=== PATIENT | male | born 1950 | race Caucasian/White ===

== ENCOUNTER → 2016-11-08 | Outpatient (CLI) | payer OTHER, MEDICARE ==
[~2016-11-08] MED LIST: ASPCH81X PO; ASPI81TA28 PO; ATOR-24 PO; BROM0.07 OPL; CLOP1TAB5 PO; LPT/40 PO; LSN20 PO; METO100T14 PO; OFLO0.3S OPL; OPTIRAY 320 IV PRN; PRED1SUS3 OPL; SYMIN160 INH; Symbicort Inhaler INH
--- NOTE | 2016-11-08 13:00 | DIAGNOSTIC IMAGING REPORT ---
CT ANGIOGRAPHY OF THE ABDOMINAL AORTA AND BILATERAL RUNOFF CT DOSE: 3788.96 mGy.cm CLINICAL HISTORY: Claudication. Atherosclerotic disease. TECHNIQUE: The patient was scanned on an emergent basis. Unenhanced images were obtained from the dome of the diaphragm through the lower legs without intravenous contrast. The examination was then repeated in a dynamic helical fashion during intravenous administration of 112 cc of Optiray 320. MIP imaging was performed. COMPARISON STUDY: None. FINDINGS: The visualized portions lung bases reveal lower lobe bronchial wall thickening and mucous plugging on the right. There are right lower lobe atelectatic changes. No hepatic or splenic masses are visualized in this arterial phase study. No gallbladder abnormalities are visualized. No pancreatic masses are visualized. No adrenal masses are visualized. There is a 5 mm lower pole right renal calculus. No renal masses are visualized. There is no evidence of pathologic adenopathy. There is no pathologic bowel dilatation. There is a small hiatal hernia. There is no evidence of hemodynamically significant celiac or superior mesenteric artery stenosis. There are 2 left renal arteries, and 3 right renal arteries. There is no evidence of hemodynamic significant renal artery stenosis. There is an infrarenal abdominal aortic aneurysm measuring 3.7 cm transversely and 3 cm in AP diameter. The aneurysm extends over a length of 5.6 cm. There is mural thrombus with a patent aortic lumen measuring approximately 2 cm. There are mild to moderate atheromatous changes present within both common iliac arteries. There is a 50% stenosis of the right common iliac artery. There is no evidence of a significant stenosis of the left. There are diffuse atheromatous changes present within both external iliac arteries. There is a 75% stenosis of the proximal left external iliac artery. There are multiple right external iliac artery stenoses, the most severe which measures 80%. There are mild multifocal common femoral artery stenoses. On the right, there are diffuse atheromatous changes present within the superficial femoral artery with multiple stenoses measuring up to 50%. There is an 8% right popliteal artery stenosis. There is a stenosis of the right proximal anterior tibial artery. The anterior tibial artery can be visualized to just above the level the ankle. The posterior tibial and peroneal arteries can be visualized to just above the level the ankle. On the left, there are diffuse atheromatous changes present within the superficial femoral artery. There is occlusion of the distal left superficial femoral artery. The proximal popliteal artery is occluded. There is reconstitution of the mid popliteal artery which contains multifocal stenoses. There are high-grade stenoses involving the proximal peroneal and posterior tibial arteries. The peroneal artery can be visualized to just above the level the ankle. The posterior tibial artery can be visualized to the level the ankle. The anterior tibial artery can be visualized to just above the level of the ankle. There is a proximal anterior tibial artery stenosis. IMPRESSION: 1. Extensive atherosclerotic disease is involving both lower extremities. There is a 50% stenosis involving the right common Artery, and 80% stenosis involving the right external iliac artery. There is a 75% stenosis of the left external iliac artery. There are mild multifocal common femoral artery stenoses. There are diffuse atheromatous changes within the superficial femoral artery with a 50% stenosis on the right, and 80% right popliteal artery stenosis. On the left, there is occlusion of the distal superficial femoral artery and proximal popliteal artery. There is mid popliteal artery reconstitution with multifocal stenoses.There are diffuse atheromatous changes within the runoff vessels bilaterally 2. 3.7 cm abdominal aortic aneurysm Electronically signed by: Nicola Celeste M.D. 11/08/2016 12:59 PM Dictated Date/Time: 11/08/2016 12:39 PM
== END | disposition home or self-care (01) ==
LOC: C.CTS 11:59
PROVIDERS: ATTEND Surgery Vascular Surgery
DX: I70.213 Atherosclerosis of native arteries of extremities with intermittent claudication, bilateral legs (principal); I71.4 Abdominal aortic aneurysm, without rupture

== ENCOUNTER → 2016-11-11 | Day surgery (SDC) | payer OTHER, MEDICARE ==
[~2016-11-11] VITALS: Ht 177.8 cm; Wt 100.0 kg
[2016-11-11] VITALS (7 sets, daily range): BP systolic 124–146; BP diastolic 69–80; PULSE 63–99; TEMP 36.3–36.8; O2SAT 94–98; Ht 177.8 cm; Wt 100.0 kg
[~2016-11-11] MED LIST changes: +CLINDAMYCIN 600 MG/54 ML D5W IV SCH; +FENTANYL CITRATE INJ 50 MCG/1 ML 2 ML VIAL IV ONE; +FENTANYL CITRATE INJ 50 MCG/1 ML 2 ML VIAL ONE; +HEPARIN SOD (PORCINE) 1000 UNIT/ML 10 ML VIAL ONE; +IODIXANOL (VISIPAQUE) 270 MG/ML 150ML XX ONE; +LIDOCAINE HCL 1% 20 ML VIAL INFIL ONE; +MIDAZOLAM HCL 1 MG/ML 2ML VIAL IV ONE; +MIDAZOLAM HCL 1 MG/ML 2ML VIAL ONE; -OPTIRAY 320 IV PRN; +OXYCODONE/ACETAMINOPHEN 5-325 TAB PO PRN; +SODIUM CHLORIDE 0.9% 1000ML 1,000 ML IV SCH
--- NOTE | 2016-11-11 06:04 | History and Physical ---
History & Physical CC: Severe claudication right leg HPI: Mr. Briseno states that for about a year and a half, he has had difficulty ambulating due to a burning sensation which develops in his right hip after walking a short distance. He states that it has worsened significantly over the past few months. He also states to having discomfort in his left calf which has developed within the last year and has worsened in the last 1-2 months as well. He states that he did have an evaluation for possible spinal problems and he was informed that he does have spinal stenosis. He says that he did have an injection in his spine; however, this did not alleviate any discomfort and he continues with the thigh claudication. He states that he was scheduled to have another injection, although he has put that off in light of his ultrasound findings recently. He admits bilateral great toe wounds. He is not sure when they started. They have been present only for a few weeks, but that they are healing slowly. He states to having skin which is peeling from his left foot and swelling of that left foot as well as numbness. He denies other complaints at this time including headaches, fevers, chills, dizziness, chest pain, shortness of breath, abdominal pain, nausea, vomiting, diarrhea, constipation, dysuria, hematuria or rest pain. ALLERGIES INCLUDE KEFLEX AND NIACIN. Her home medications are reconciled in the chart and include the following: Aspirin, atorvastatin, fenofibrate, lisinopril, metoprolol tartrate, Symbicort and tramadol. IMAGING: The patient did have an aortoiliac ultrasound at [facility], which demonstrated a severe stenosis of his right external iliac artery, a significant stenosis of his right common iliac and a significant stenosis of his left external iliac artery as well. A lower extremity ultrasound demonstrated significant disease with bilateral SFA occlusions and a left DIANA of 0.3 and a right of 0.5. PAST MEDICAL HISTORY: Positive for MS, coronary artery disease, spinal stenosis , hyperlipidemia, hypertension. History is positive for appendectomy, hernia repair x2, bowel surgery x2 and an abdominal hernia repair x1 in 2007. FAMILY HISTORY: Positive for heart disease, hypertension, diabetes and cancer. SOCIAL HISTORY: Positive for tobacco use. The patient states that he quit smoking a pack a day 2 months ago. He states that he does imbibe alcohol on a nearly daily basis, typically with 1-2 glasses of wine with dinner and occasional light beer on the weekend. REVIEW OF SYSTEMS: Negative for fatigue, fevers, sweats or weight loss. He does admit to exercise intolerance and states that he will typically only ambulate around his house doing small activities walking as it is causing too much discomfort for him to ambulate any significant distance. He states that he has to stop at about 100 feet. PHYSICAL EXAMINATION: His vital signs are as follows: Blood pressure of 112/60 , heart rate 60, respiratory rate of 16 and oxygen 96% on room air. The patient is 177 cm tall and weighs 99.8 kilograms. Constitutional: In general, patient is a mildly ill-appearing elderly male in no acute distress. He ambulates without assistance and is active, alert and oriented x4 with normal recent and remote memory. Head is normocephalic, atraumatic. Eyes are EOMI. Her ENMT exam demonstrates no hearing loss, rhinorrhea or pharyngeal erythema. Neck is supple, nontender, with midline trachea without crepitus. Lungs are clear bilaterally, but decreased throughout. Cardiovascular exam demonstrates a nondisplaced apical impulse with a regular rate and rhythm without murmurs, gallops, or rubs. Peripheral pulses are full and equal in all extremities unless otherwise noted, specifically in his carotid, brachial and radial. His right femoral pulse is nonpalpable, his left is +1, his bilateral lower extremities distal pulses are nonpalpable. He has brisk capillary refill to his toes with no sign of distal ischemia noted. The patient demonstrates no bruit in his carotid, abdominal or femoral area. Abdomen is soft, nontender with normoactive bowel sounds in all 4 quadrants without guarding or rebound and I was unable to appreciate any pulsatile masses due to body habitus. Musculoskeletal exam demonstrates normal tone and strength for age. Bilateral upper extremities demonstrate no cyanosis, edema, clubbing, varicosities or ulcers. The patient's left lower extremity does demonstrate +1 edema at the ankle and foot. This foot is somewhat erythematous with exudative dermatitis noted primarily to the forefoot. He does have a few cracks in his heel into the calluses of the forefoot. There is a very shallow ulceration to his left toe tip which appears to have good granulation. His right foot has a similar wound to the tip of his great toe which is healing as well, but that foot does not demonstrate any dermatitis or erythema. Neurologically, patient has grossly intact cranial nerves and grossly intact sensation. ASSESSMENT: Severe peripheral arterial disease and aortoiliac disease with significant claudication. PLAN: Patient admitted for arteriography and possible intervention. I have discussed the risks options and benefits of the procedure with the patient. The patient understands the risks options and benefits and agrees to the procedure.
[2016-11-11 07:25] LABS: CREATININE 0.97 mg/dl (0.60-1.40)
--- NOTE | 2016-11-11 08:48 | Procedure Note ---
Pre-Mod Sedation Assessment General Date of Moderate Sedation: Nov 11, 2016. Vital Signs: Vital Signs Past 12 Hours Date Time Temp Pulse Resp B/P Pulse Ox O2 Delivery O2 Flow Rate FiO2 11/11/16 06:15 36.3 99 16 140/80 94 Room Air Pre-Sedation Airway Assessment Oral Cavity: WNL Smoking Status: Former Smoker Mallampati Classification: Class I ASA Classification: Class II Notes The planned sedation has been discussed with the patient and consent obtained. I have identified the patient, determined the appropriateness of sedation and have assessed the patient immediately prior to the procedure. All medicine(s) and interventions are by my order.
--- NOTE | 2016-11-11 08:48 | History & Physical Bridge Note ---
H&P Re-Evaluation Bridge Note: I have examined the patient, reviewed the History & Physical and in the interval since the performance of the History & Physical I have noted the following changes of clinical significance: No changes noted
--- NOTE | 2016-11-11 10:03 | Procedure Note ---
Post-Moderate Sedation Plan General Date of Moderate Sedation Nov 11, 2016. Vital Signs: Vital Signs Past 12 Hours Date Time Temp Pulse Resp B/P Pulse Ox O2 Delivery O2 Flow Rate FiO2 11/11/16 06:15 36.3 99 16 140/80 94 Room Air Review - Discharge Plan Post Moderate Sedation Plan: On clinical assessment, the patient appears to have tolerated the conscious sedation without complications. Patient is recovering as anticipated. Patient will continue to be monitored by nursing and may be discharged when conscious sedation discharge criteria are met.
--- NOTE | 2016-11-11 10:04 | [facility] Post Operative Brief Note ---
Immediate Operative Summary Operative Date Nov 11, 2016. Pre-Operative Diagnosis Severe peripheral arterial disease and aortoiliac disease with significant claudication. Post-Operative Diagnosis Same Procedure(s) Performed Arteriogram Percutaneous Transluminal Angioplaty/Stent Right External Iliac Artery Stent Moderate Conscious Sedation ([id number]) Surgeon Pablo Aircraft Mechanic Surgeon(s) None Estimated Blood Loss 5 Findings 90% stenosis of right ext iliac artery with 10% residual Specimens None Anesthesia Local with moderate conscious sedation Complication(s) None Disposition
--- NOTE | 2016-11-11 10:20 | DIAGNOSTIC IMAGING REPORT ---
DATE OF PROCEDURE: 11/11/2016 PREOPERATIVE DIAGNOSIS: Right external iliac artery stenosis. POSTOPERATIVE DIAGNOSIS: Same. PROCEDURE: 1. Stent of right external iliac artery using a 9 x 3 Absolute. 2. Moderate conscious sedation, 27 minutes. SURGEON: Dr. Shah. ANESTHETIC: Local with moderate conscious sedation. PROCEDURE INDICATIONS: The patient is a 65-year-old gentleman with bilateral leg claudication, much worse on the right than the left. He complains of fair amount of thigh claudication which is limiting his daily activity. He was found to have severe stenosis of the right external iliac artery on CTA. Stenting of this lesion was recommended. He understood the risks, options and benefits, and agreed to have this procedure. The patient was taken to the angiogram suite and placed in supine position. After groins were prepped and draped in a sterile manner, local anesthetic was administered. A percutaneous puncture was then made of the right common femoral artery. A 5-Hungarian sheath was inserted. A catheter was passed up into the infrarenal aorta over a 0.035 wire. Pigtail was situated above the renals at the end prior to the injection. Aortogram was performed which showed moderate irregularity of the abdominal aorta. There was irregularity seen in the left iliac system. The right iliac system had mild irregularity until the distal external iliac artery at which point there appeared to be a 90% lesion. The catheter was removed. The C-arm was obliqued and another run of hand injection was done. This confirmed a 90% narrowing of the distal right external iliac artery. It was decided to place a 9 x 3 Absolute stent. This was placed over the wire. It was deployed without difficulty. A 9 x 4 balloon was then used to expand the stent. There was a 10% residual at the end of this ballooning. At that point, the wire and catheter were removed. The wire was reinserted and the Star closure device was then inserted to its sheath; however, I did not like the positioning of the StarClose, therefore, it was not deployed. Pressure was applied to the puncture site. Adequate hemostasis was obtained. Sterile pressure dressing was applied and the patient left the angio suite in good condition and tolerated the procedure well.
--- NOTE | 2016-11-11 13:38 | Discharge Instructions ---
Discharge Instructions Visit Reason for Visit: Aortoiliac Occlusive Disease with Claudication Discharge Discharge Diagnosis / Problem: Right iliac artery stenosis Discharge Goals Goal(s): Therapeutic intervention Activity Recommendations Activity Limitations: per Instructions/Follow-up section Anesthesia . Post Anesthesia Instructions: If you have had General Anesthesia or IV Sedation: * Do not drive today. * Resume driving when surgeon permits. * Do not make important decisions or sign legal documents today. * Call surgeon for: 1. Temperature elevations greater than 101 degrees F. 2. Uncontrollable pain. 3. Excessive bleeding. 4. Persistent nausea and vomiting. 5. Medication intolerance (nausea, vomiting or rash). * For nausea and vomiting use only clear liquids such as: tea, soda, bouillon until nausea subsides, then gradually increase diet as tolerated. * If you have any concerns or questions, call your surgeon's office. If physician is unavailable and it is an emergency, call 911 or go to the nearest emergency room. . Instructions / Follow-Up Instructions / Follow-Up Call [phone] to schedule a follow up appointment if one not already scheduled. SPECIAL CARE INSTRUCTIONS: Medications: * Continue to take your medications as directed. If you have been given a prescription for Plavix, please fill it immediately and take as directed. Incision Care: * Your puncture site may have some bruising and minor swelling for about one week. * You will have a small dressing covering your puncture site. You may remove the dressing after 24 hours and shower. You may let the warm soapy water run over it, but be sure to dry the puncture site well and keep it dry. * DO NOT IMMERSE THE INCISION IN A TUB/POOL/etc. UNTIL HEALED. * Puncture sites should be kept covered with a band-aid until it begins to heal. Restrictions: * Depending on whether you leg or arm was punctured to access the arteries, you will be required to lay flat, hold your arm still, or both, for about 4 hours after the procedure to prevent bleeding. * Limit your activity for the first 48 hours. You may walk and go up and down steps. Avoid excessive bending or movement at the puncture site. Possible Complications: * Excessive Swelling - after blood flow is improved you may notice increased swelling in the lower legs. This is a normal response. This usually depends on the amount of blockages in the leg, how long they have been there prior to your procedure and how much blood flow was restored. Elevating your legs will help to improve this. Please notify our office ([phone] ) if the swelling does not go away after lying in bed overnight. * Infection/Drainage/Bleeding - Drainage or bleeding from the puncture site should be minimal. If you have excessive bleeding or drainage, call our office ([phone]) right away. * Pain - You may experience some mild pain or soreness at your puncture site. If your pain does not improve, please contact our office ([phone]). Call your doctor and seek emergent treatment if you develop: * Temperature above 101 degrees * Any fever or chills * Any redness or purulent drainage from the puncture site * Any new dusky/blue colored toes or feet with coolness or sharp or aching pain. SKIN IRRITATION: * You may experience some redness and/or swelling in the area where radiation was administered. If any skin irritation occurs, please contact your family physician. FOLLOW UP VISIT: Keep any scheduled doctor appointments. Diet Recommendations Recommended Home Diet: resume previous diet Procedures Procedures Performed: Arteriogram Percutaneous Transluminal Angioplaty/Stent Right External Iliac Artery Stent Moderate Conscious Sedation ([id number]) Pending Studies Studies pending at discharge: no Medical Emergencies . Who to Call and When: Medical Emergencies: If at any time you feel your situation is an emergency, please call 911 immediately. . Non-Emergent Contact Non-Emergency issues call your: Surgeon . . "Provider Documentation" section prepared by Colby Shah.
--- NOTE | 2016-12-02 09:24 | EDITING REQUIRED CODING QUERY ---
SUPPORTING DIAGNOSIS NEEDED A supporting diagnosis is required for the test/procedure performed on this patient in order for us to be reimbursed by the patient's insurance. Please provide a supporting diagnosis for the following test/procedure listed below next to the test name along with your signature. *If there is no additional diagnosis for this patient that would support the following test/procedure please document that below next to the test/procedure. Test(s)/Procedure(s) that require a supporting diagnosis: * ([id number]) NON-CORONARY VASCULAR STENT - ILIAC REVASCULAR WITH STENT * DIAGNOSIS: Provider Signature: Date: Thank you Zuleika Da Silva Health Information Management Once completed, please kindly fax back to [phone] For questions please call [phone]
== END | disposition home or self-care (01) ==
LOC: C.ACU 05:44
PROVIDERS: ATTEND Surgery Vascular Surgery
DX: I70.211 Atherosclerosis of native arteries of extremities with intermittent claudication, right leg (principal); L97.529 Non-pressure chronic ulcer of other part of left foot with unspecified severity; L97.519 Non-pressure chronic ulcer of other part of right foot with unspecified severity; I74.3 Embolism and thrombosis of arteries of the lower extremities; I25.10 Atherosclerotic heart disease of native coronary artery without angina pectoris; E78.5 Hyperlipidemia, unspecified; I10 Essential (primary) hypertension; Z82.49 Family history of ischemic heart disease and other diseases of the circulatory system; Z83.3 Family history of diabetes mellitus; Z87.891 Personal history of nicotine dependence; Z79.899 Other long term (current) drug therapy; Z79.82 Long term (current) use of aspirin; I25.2 Old myocardial infarction

== ENCOUNTER → 2016-12-21 | Day surgery (SDC) | payer OTHER, MEDICARE ==
[2016-12-20 11:28] VITALS: Ht 177.8 cm; Wt 97.7 kg
[~2016-12-21] VITALS: Ht 177.8 cm; Wt 97.7 kg
[~2016-12-21] MED LIST changes: +500ML BSS 0.3ML EPI 1:1000PF IRRIG ONE; +ACETAMINOPHEN 325 MG TAB PO PRN; +AMVISC PLUS 0.8ML SYRINGE INT OCU ONE; -ASPI81TA28 PO; +ATROPINE SULFATE 0.1 MG/ML 5ML SYR IV PRN; +BSS FLUSH ONE; -CLINDAMYCIN 600 MG/54 ML D5W IV SCH; +ENDOCOAT 0.85ML SYRINGE INT OCU ONE; +EpHEDrine SULFATE INJ 50 MG/ML AMP IV PRN; +EpINEphrine INJ 1MG/ML AMP 1 MG/ML AMP ONE; -FENTANYL CITRATE INJ 50 MCG/1 ML 2 ML VIAL IV ONE; -FENTANYL CITRATE INJ 50 MCG/1 ML 2 ML VIAL ONE; -HEPARIN SOD (PORCINE) 1000 UNIT/ML 10 ML VIAL ONE; -IODIXANOL (VISIPAQUE) 270 MG/ML 150ML XX ONE; +LACTATED RINGER'S 1000ML 500 ML IV SCH; +LIDOCAINE 4% OP SOLN DROP CHARGE ONE; +LIDOCAINE 4% OP SOLN DROP CHARGE OPL SCH; -LIDOCAINE HCL 1% 20 ML VIAL INFIL ONE; +LIDOCAINE HCL 1% MPF 2 ML VIAL ONE; -LPT/40 PO; -LSN20 PO; -MIDAZOLAM HCL 1 MG/ML 2ML VIAL IV ONE; +MIX: 4ML BSS 1ML EPI 1:1000 PF TOP ONE; +MOXIFLOXACIN OPH SOLN PER DROP CHARGE ONE; -OXYCODONE/ACETAMINOPHEN 5-325 TAB PO PRN; +POVIDONE-IODINE OP SOLN 30 ML BTL ONE; +PROPARACAINE 0.5% OP SOLN PER DROP CHARGE OPL SCH; -SODIUM CHLORIDE 0.9% 1000ML 1,000 ML IV SCH; -SYMIN160 INH; +TOBRAMYCIN/DEXAMETHASONE OPH OINT PER APPLN CHARGE ONE
[2016-12-21] MEDS: PHENYLEPHRINE HCL 2.5% OP SOLN PER DROP CHARGE OPL SCH ×3 (08:44→08:54)
[2016-12-21] MEDS: TROPICAMIDE 1% OP SOLN PER DROP CHARGE OPL SCH ×3 (08:45→08:55)
[2016-12-21] MEDS: CYCLOPENTOLATE HCL 1% OP SOLN PER DROP CHARGE OPL SCH ×3 (08:46→08:52)
[2016-12-21] MEDS: MOXIFLOXACIN OPH SOLN PER DROP CHARGE OPL SCH ×3 (08:47→08:53)
--- NOTE | 2016-12-21 09:55 | [facility] Post Operative Brief Note ---
Immediate Operative Summary Operative Date Dec 21, 2016. Pre-Operative Diagnosis Left Eye Cataract Post-Operative Diagnosis same Procedure(s) Performed Left Cataract Phacoemulsification With Intraocular Lens Implant Surgeon Dr. Aaliyah Frias Oim Architect Surgeon(s) 0 Estimated Blood Loss 0 Findings left cataract Specimens none Complication(s) None Disposition
--- NOTE | 2016-12-21 09:56 | [facility] Operative Report ---
Operative Report Date of Service Dec 21, 2016. Operative Report Phaco with monofocal IOL DATE OF OPERATION: 12/21/16 PREOPERATIVE DIAGNOSIS: Senile nuclear cataract, left eye POSTOPERATIVE DIAGNOSIS: Senile nuclear cataract, left eye PROCEDURE PERFORMED: Phacoemulsification with intraocular lens implantation, left eye SURGEON: Dr. Chaz Frias ANESTHESIA: Topical with 1% intracameral lidocaine and monitored anesthesia care COMPLICATIONS: None DESCRIPTION OF PROCEDURE: After positively identifying the patient both verbally and by wristband in the preoperative area, the left eye was marked as the operative eye. The patient was then brought back to the operating room by the anesthesia and nursing staff where they were given a drop of Lidocaine and betadine into the operative eye. They were then sterilely prepped and draped in the standard fashion typical for ophthalmic surgery. Steri-strips were placed along the upper eyelids to keep the lashes back, and a lid speculum was placed into the operative eye. At this point, a documented time out was performed with members of the ophthalmology, nursing, and anesthesia staffs all agreeing upon the correct patient, correct location for surgery, correct procedure, and correct type and power of intraocular lens to be implanted. The microscope was then swung into position. First, a paracentesis wound was made using a sideport blade. Then, in sequence, 1% preservative-free lidocaine followed by Endocoat viscoelastic was injected into the anterior chamber. Next , the main incision was made with a keratome blade in triplanar fashion. A sharp cystotome was introduced into the eye and used to create a tear in the anterior capsule, which was directed into a continuous curvilinear capsulorrhexis using Utrata forceps. Hydrodissection was then performed with BSS on a flat-tip cannula. Next, the phacoemulsification handpiece was introduced into the eye and used to remove the nucleus in a [id number] fashion. This was done without complication and then the irrigation-aspiration handpiece was introduced into the eye and used to remove all remaining cortical and epinuclear material. Amvisc was then injected into the anterior chamber as well as into the capsular bag and using the lens injector system, an MX60 21.0 D lens, serial number [id number], and expiration date 06/2019 was injected into the capsular bag and rotated into the correct position. Next, the irrigation- aspiration handpiece was used to remove all remaining Amvisc. BSS was used to hydrate the main wound, and then BSS was injected into the paracentesis site to reach physiologic pressure and then the main wound was checked and found to be watertight. The patient was given drops of Vigamox and Tobradex ointment into the operative eye, and then the surrounding area was cleaned and dried. A clear plastic shield was placed over the eye and the patient was then sat up and taken from the operating room by the anesthesia staff having tolerated the procedure well and suffering no complications. DISPOSITION: The patient was returned to the recovery room in stable condition. I attest to the content of the Intraoperative Record and any orders documented therein. Any exceptions are noted below.
[2016-12-21 09:57] VITALS: TEMP 37.1
--- NOTE | 2016-12-21 09:57 | Discharge Instructions-SurgCtr ---
Discharge Instructions Date of Service Dec 21, 2016. Visit Reason for Visit: Cataract Left Eye Discharge Discharge Diagnosis / Problem: left cataract Discharge Goals Goal(s): Decrease discomfort, Improve function Activity Recommendations Activity Limitations: as noted below Anesthesia . Post Anesthesia Instructions: If you have had General Anesthesia or IV Sedation: * Do not drive today. * Resume driving when surgeon permits. * Do not make important decisions or sign legal documents today. * Call surgeon for: 1. Temperature elevations greater than 101 degrees F. 2. Uncontrollable pain. 3. Excessive bleeding. 4. Persistent nausea and vomiting. 5. Medication intolerance (nausea, vomiting or rash). * For nausea and vomiting use only clear liquids such as: tea, soda, bouillon until nausea subsides, then gradually increase diet as tolerated. * If you have any concerns or questions, call your surgeon's office. If physician is unavailable and it is an emergency, call 911 or go to the nearest emergency room. . Instructions / Follow-Up Instructions / Follow-Up ACTIVITY RECOMMENDATIONS: * Light activities. * You may walk outside, read, watch television. * You may notice redness on the white part of the eye and some blurry vision - this is normal. MEDICATIONS: Resume previous medications unless instructed otherwise by your surgeon. Start all eye drops at 12 pm today: * Eye drops (today): Prednisone - one drop in operative eye every 2 hours while awake Ofloxacin - one drop in operative eye every 2 hours while awake Bromfenac - one drop in operative eye daily SPECIAL CARE INSTRUCTIONS: * Tape plastic shield over eye to sleep at night. Call your doctor at with any concerns or problems. FOLLOW UP VISIT: Follow-up with Dr Frias at [facility] as scheduled. Diet Recommendations Home Diet: no limitations Procedures Procedures Performed: Left Cataract Phacoemulsification With Intraocular Lens Implant Pending Studies Studies pending at discharge: no Medical Emergencies . Who to Call and When: Medical Emergencies: If at any time you feel your situation is an emergency, please call 911 immediately. . Non-Emergent Contact Non-Emergency issues call your: Surgeon . . "Provider Documentation" section prepared by Chaz Frias.
--- NOTE | 2016-12-21 10:01 | Anesthesia Progress Nt - [facility] ---
Anesthesia Post Op Note Date & Time Dec 21, 2016 at 10:01 Vital Signs Vital Signs Past 12 Hours Date Time Temp Pulse Resp B/P Pulse Ox O2 Delivery O2 Flow Rate FiO2 12/21/16 08:42 36.6 67 16 118/81 99 Room Air Notes Mental Status: alert / awake / arousable, participated in evaluation Pt Amnestic to Procedure: Yes Nausea / Vomiting: adequately controlled Pain: adequately controlled Airway Patency, RR, SpO2: stable & adequate BP & HR: stable & adequate Hydration State: stable & adequate Anesthetic Complications: no major complications apparent
[2016-12-21 10:20] VITALS: BP 112/74; PULSE 72; O2SAT 97
== END | disposition home or self-care (01) ==
LOC: X.SURG 08:07
PROVIDERS: ATTEND Ophthalmology
DX: H25.12 Age-related nuclear cataract, left eye (principal); I10 Essential (primary) hypertension; E78.5 Hyperlipidemia, unspecified; I51.9 Heart disease, unspecified; Z90.49 Acquired absence of other specified parts of digestive tract; Z98.890 Other specified postprocedural states

== ENCOUNTER → 2017-01-04 | Day surgery (SDC) | payer OTHER, MEDICARE ==
[2016-12-27 12:38] VITALS: Ht 177.8 cm; Wt 97.7 kg
[~2017-01-04] VITALS: Ht 177.8 cm; Wt 97.7 kg
[~2017-01-04] MED LIST changes: -LIDOCAINE 4% OP SOLN DROP CHARGE OPL SCH; +LIDOCAINE 4% OP SOLN DROP CHARGE OPR SCH; -PROPARACAINE 0.5% OP SOLN PER DROP CHARGE OPL SCH; +PROPARACAINE 0.5% OP SOLN PER DROP CHARGE OPR SCH
[2017-01-04] MEDS: PHENYLEPHRINE HCL 2.5% OP SOLN PER DROP CHARGE OPR SCH ×3 (08:26→08:36)
[2017-01-04] MEDS: TROPICAMIDE 1% OP SOLN PER DROP CHARGE OPR SCH ×3 (08:27→08:37)
[2017-01-04] MEDS: CYCLOPENTOLATE HCL 1% OP SOLN PER DROP CHARGE OPR SCH ×3 (08:28→08:38)
[2017-01-04] MEDS: MOXIFLOXACIN OPH SOLN PER DROP CHARGE OPR SCH ×3 (08:29→08:49)
--- NOTE | 2017-01-04 09:40 | [facility] Post Operative Brief Note ---
Immediate Operative Summary Operative Date Jan 04, 2017. Pre-Operative Diagnosis Cataract Right Eye Post-Operative Diagnosis Same Procedure(s) Performed Right Cataract Phacoemulsification With Intraocular Lens Implant Surgeon Dr. Frias Vice President Of Engineering Surgeon(s) None Estimated Blood Loss 0 Findings right cataract Specimens None Complication(s) None Disposition
[2017-01-04 09:41] VITALS: TEMP 36.2
--- NOTE | 2017-01-04 09:41 | [facility] Operative Report ---
Operative Report Date of Service Jan 04, 2017. Operative Report Phaco with monofocal IOL DATE OF OPERATION: 01/04/17 PREOPERATIVE DIAGNOSIS: Senile nuclear cataract, right eye POSTOPERATIVE DIAGNOSIS: Senile nuclear cataract, right eye PROCEDURE PERFORMED: Phacoemulsification with intraocular lens implantation, right eye SURGEON: Dr. Chaz Frias ANESTHESIA: Topical with 1% intracameral lidocaine and monitored anesthesia care COMPLICATIONS: None DESCRIPTION OF PROCEDURE: After positively identifying the patient both verbally and by wristband in the preoperative area, the right eye was marked as the operative eye. The patient was then brought back to the operating room by the anesthesia and nursing staff where they were given a drop of Lidocaine and betadine into the operative eye. They were then sterilely prepped and draped in the standard fashion typical for ophthalmic surgery. Steri-strips were placed along the upper eyelids to keep the lashes back, and a lid speculum was placed into the operative eye. At this point, a documented time out was performed with members of the ophthalmology, nursing, and anesthesia staffs all agreeing upon the correct patient, correct location for surgery, correct procedure, and correct type and power of intraocular lens to be implanted. The microscope was then swung into position. First, a paracentesis wound was made using a sideport blade. Then, in sequence, 1% preservative-free lidocaine followed by Endocoat viscoelastic was injected into the anterior chamber. Next , the main incision was made with a keratome blade in triplanar fashion. A sharp cystotome was introduced into the eye and used to create a tear in the anterior capsule, which was directed into a continuous curvilinear capsulorrhexis using Utrata forceps. Hydrodissection was then performed with BSS on a flat-tip cannula. Next, the phacoemulsification handpiece was introduced into the eye and used to remove the nucleus in a [id number] fashion. This was done without complication and then the irrigation-aspiration handpiece was introduced into the eye and used to remove all remaining cortical and epinuclear material. Amvisc was then injected into the anterior chamber as well as into the capsular bag and using the lens injector system, an MX60 21.0 D lens, serial number [id number], and expiration date 06/2019 was injected into the capsular bag and rotated into the correct position. Next, the irrigation- aspiration handpiece was used to remove all remaining Amvisc. BSS was used to hydrate the main wound, and then BSS was injected into the paracentesis site to reach physiologic pressure and then the main wound was checked and found to be watertight. The patient was given drops of Vigamox and Tobradex ointment into the operative eye, and then the surrounding area was cleaned and dried. A clear plastic shield was placed over the eye and the patient was then sat up and taken from the operating room by the anesthesia staff having tolerated the procedure well and suffering no complications. DISPOSITION: The patient was returned to the recovery room in stable condition. I attest to the content of the Intraoperative Record and any orders documented therein. Any exceptions are noted below.
--- NOTE | 2017-01-04 09:42 | Discharge Instructions-SurgCtr ---
Discharge Instructions Date of Service Jan 04, 2017. Visit Reason for Visit: Cataract Right Eye Discharge Discharge Diagnosis / Problem: right cataract Discharge Goals Goal(s): Decrease discomfort, Improve function Activity Recommendations Activity Limitations: as noted below Anesthesia . Post Anesthesia Instructions: If you have had General Anesthesia or IV Sedation: * Do not drive today. * Resume driving when surgeon permits. * Do not make important decisions or sign legal documents today. * Call surgeon for: 1. Temperature elevations greater than 101 degrees F. 2. Uncontrollable pain. 3. Excessive bleeding. 4. Persistent nausea and vomiting. 5. Medication intolerance (nausea, vomiting or rash). * For nausea and vomiting use only clear liquids such as: tea, soda, bouillon until nausea subsides, then gradually increase diet as tolerated. * If you have any concerns or questions, call your surgeon's office. If physician is unavailable and it is an emergency, call 911 or go to the nearest emergency room. . Instructions / Follow-Up Instructions / Follow-Up ACTIVITY RECOMMENDATIONS: * Light activities. * You may walk outside, read, watch television. * You may notice redness on the white part of the eye and some blurry vision - this is normal. MEDICATIONS: Resume previous medications unless instructed otherwise by your surgeon. Start all eye drops at 11:30 am today: * Eye drops (today): Prednisone - one drop in operative eye every 2 hours while awake Ofloxacin - one drop in operative eye every 2 hours while awake Bromfenac - one drop in operative eye daily SPECIAL CARE INSTRUCTIONS: * Tape plastic shield over eye to sleep at night. Call your doctor at with any concerns or problems. FOLLOW UP VISIT: Follow-up with Dr Frias at [facility] as scheduled. Diet Recommendations Home Diet: no limitations Procedures Procedures Performed: Right Cataract Phacoemulsification With Intraocular Lens Implant Pending Studies Studies pending at discharge: no Medical Emergencies . Who to Call and When: Medical Emergencies: If at any time you feel your situation is an emergency, please call 911 immediately. . Non-Emergent Contact Non-Emergency issues call your: Surgeon . . "Provider Documentation" section prepared by Chaz Frias.
--- NOTE | 2017-01-04 09:52 | Anesthesia Progress Nt - [facility] ---
Anesthesia Post Op Note Date & Time Jan 04, 2017 at 09:52 Vital Signs Pain Intensity: 0 Vital Signs Past 12 Hours Date Time Temp Pulse Resp B/P Pulse Ox O2 Delivery O2 Flow Rate FiO2 01/04/17 08:19 36.8 64 20 111/74 98 Room Air Notes Mental Status: alert / awake / arousable, participated in evaluation Pt Amnestic to Procedure: Yes Nausea / Vomiting: adequately controlled Pain: adequately controlled Airway Patency, RR, SpO2: stable & adequate BP & HR: stable & adequate Hydration State: stable & adequate Anesthetic Complications: no major complications apparent
[2017-01-04 10:02] VITALS: BP 101/70; PULSE 66; O2SAT 98
== END | disposition home or self-care (01) ==
LOC: X.SURG 07:57
PROVIDERS: ATTEND Ophthalmology
DX: H25.11 Age-related nuclear cataract, right eye (principal); I10 Essential (primary) hypertension; I51.9 Heart disease, unspecified; E78.00 Pure hypercholesterolemia, unspecified; Z96.1 Presence of intraocular lens

== ENCOUNTER 2017-02-24 05:21 | Day surgery (SDC) | payer OTHER, MEDICARE ==
[2017-02-24] VITALS (11 sets, daily range): BP systolic 130–164; BP diastolic 64–80; PULSE 58–69; TEMP 36.4–37; O2SAT 94–97; Ht 177.8 cm; Wt 97.6 kg
[~2017-02-24] VITALS: Ht 177.8 cm; Wt 97.6 kg
[~2017-02-24 05:21] MED LIST changes: -500ML BSS 0.3ML EPI 1:1000PF IRRIG ONE; -ACETAMINOPHEN 325 MG TAB PO PRN; -AMVISC PLUS 0.8ML SYRINGE INT OCU ONE; -ATROPINE SULFATE 0.1 MG/ML 5ML SYR IV PRN; -BSS FLUSH ONE; -CLOP1TAB5 PO; -ENDOCOAT 0.85ML SYRINGE INT OCU ONE; -EpHEDrine SULFATE INJ 50 MG/ML AMP IV PRN; -EpINEphrine INJ 1MG/ML AMP 1 MG/ML AMP ONE; -LACTATED RINGER'S 1000ML 500 ML IV SCH; -LIDOCAINE 4% OP SOLN DROP CHARGE ONE; -LIDOCAINE 4% OP SOLN DROP CHARGE OPR SCH; -LIDOCAINE HCL 1% MPF 2 ML VIAL ONE; -MIDAZOLAM HCL 1 MG/ML 2ML VIAL ONE; -MIX: 4ML BSS 1ML EPI 1:1000 PF TOP ONE; -MOXIFLOXACIN OPH SOLN PER DROP CHARGE ONE; -POVIDONE-IODINE OP SOLN 30 ML BTL ONE; -PROPARACAINE 0.5% OP SOLN PER DROP CHARGE OPR SCH; -Symbicort Inhaler INH; -TOBRAMYCIN/DEXAMETHASONE OPH OINT PER APPLN CHARGE ONE
[2017-02-24] MEDS ORDERED: Symbicort Inhaler INH (05:54)
[2017-02-24] MEDS ORDERED: CLINDAMYCIN 600 MG/54 ML D5W IV SCH (06:00)
[2017-02-24] MEDS ORDERED: SODIUM CHLORIDE 0.9% 1000ML IV SCH (06:00)
--- NOTE | 2017-02-24 06:20 | History and Physical ---
History & Physical Date of Service February 24, 2017. History & Physical CC: Severe claudication left leg with toe ulcer HPI: Mr. Briseno states that for about a year and a half, he has had difficulty ambulating due to a burning sensation which develops in his right hip after walking a short distance. He states that it has worsened significantly over the past few months. He also states to having discomfort in his left calf which has developed within the last year and has worsened in the last 1-2 months as well. He states that he did have an evaluation for possible spinal problems and he was informed that he does have spinal stenosis. He says that he did have an injection in his spine; however, this did not alleviate any discomfort and he continues with the thigh claudication. He states that he was scheduled to have another injection, although he has put that off in light of his ultrasound findings recently. He admits bilateral great toe wounds. He is not sure when they started. They have been present only for a few weeks, but that they are healing slowly. He states to having skin which is peeling from his left foot and swelling of that left foot as well as numbness. He had intervention on his right leg with good results. He now has significant claudication of his left leg. He denies other complaints at this time including headaches, fevers, chills, dizziness, chest pain, shortness of breath, abdominal pain, nausea, vomiting, diarrhea, constipation, dysuria, hematuria or rest pain. ALLERGIES INCLUDE KEFLEX AND NIACIN. Her home medications are reconciled in the chart and include the following: Aspirin, atorvastatin, fenofibrate, lisinopril, metoprolol tartrate, Symbicort and tramadol. IMAGING: The patient did have an aortoiliac ultrasound at [facility], which demonstrated a severe stenosis of his right external iliac artery, a significant stenosis of his right common iliac and a significant stenosis of his left external iliac artery as well. A lower extremity ultrasound demonstrated significant disease with bilateral SFA occlusions and a left DIANA of 0.3 and a right of 0.5. PAST MEDICAL HISTORY: Positive for PR, coronary artery disease, spinal stenosis , hyperlipidemia, hypertension. History is positive for appendectomy, hernia repair x2, bowel surgery x2 and an abdominal hernia repair x1 in 2007. FAMILY HISTORY: Positive for heart disease, hypertension, diabetes and cancer. SOCIAL HISTORY: Positive for tobacco use. The patient states that he quit smoking a pack a day 2 months ago. He states that he does imbibe alcohol on a nearly daily basis, typically with 1-2 glasses of wine with dinner and occasional light beer on the weekend. REVIEW OF SYSTEMS: Negative for fatigue, fevers, sweats or weight loss. He does admit to exercise intolerance and states that he will typically only ambulate around his house doing small activities walking as it is causing too much discomfort for him to ambulate any significant distance. He states that he has to stop at about 100 feet. PHYSICAL EXAMINATION: His vital signs are as follows: Blood pressure of 112/60 , heart rate 60, respiratory rate of 16 and oxygen 96% on room air. The patient is 177 cm tall and weighs 99.8 kilograms. Constitutional: In general, patient is a mildly ill-appearing elderly male in no acute distress. He ambulates without assistance and is active, alert and oriented x4 with normal recent and remote memory. Head is normocephalic, atraumatic. Eyes are EOMI. Her ENMT exam demonstrates no hearing loss, rhinorrhea or pharyngeal erythema. Neck is supple, nontender, with midline trachea without crepitus. Lungs are clear bilaterally, but decreased throughout. Cardiovascular exam demonstrates a nondisplaced apical impulse with a regular rate and rhythm without murmurs, gallops, or rubs. Peripheral pulses are full and equal in all extremities unless otherwise noted, specifically in his carotid, brachial and radial. His right femoral pulse is nonpalpable, his left is +1, his bilateral lower extremities distal pulses are nonpalpable. He has brisk capillary refill to his toes with no sign of distal ischemia noted. The patient demonstrates no bruit in his carotid, abdominal or femoral area. Abdomen is soft, nontender with normoactive bowel sounds in all 4 quadrants without guarding or rebound and I was unable to appreciate any pulsatile masses due to body habitus. Musculoskeletal exam demonstrates normal tone and strength for age. Bilateral upper extremities demonstrate no cyanosis, edema, clubbing, varicosities or ulcers. The patient's left lower extremity does demonstrate +1 edema at the ankle and foot. This foot is somewhat erythematous with exudative dermatitis noted primarily to the forefoot. He does have a few cracks in his heel into the calluses of the forefoot. There is a very shallow ulceration to his left toe tip which appears to have good granulation. His right foot has a similar wound to the tip of his great toe which is healing as well, but that foot does not demonstrate any dermatitis or erythema. Neurologically, patient has grossly intact cranial nerves and grossly intact sensation. ASSESSMENT: Severe peripheral arterial disease and aortoiliac disease with significant claudication. PLAN: Patient admitted for left lower extrmiety arteriography and possible intervention. I have discussed the risks options and benefits of the procedure with the patient. The patient understands the risks options and benefits and agrees to the procedure.
[2017-02-24 06:53] LABS: CREATININE 0.91 mg/dl (0.60-1.40)
[2017-02-24] MEDS ORDERED: HEPARIN SOD (PORCINE) 1000 UNIT/ML 10 ML VIAL ONE (07:25)
[2017-02-24] MEDS ORDERED: FENTANYL CITRATE INJ 50 MCG/1 ML 2 ML VIAL ONE (07:25)
[2017-02-24] MEDS ORDERED: MIDAZOLAM HCL 1 MG/ML 2ML VIAL ONE (07:25)
--- NOTE | 2017-02-24 07:56 | Procedure Note ---
Pre-Mod Sedation Assessment General Date of Moderate Sedation: February 24, 2017. Vital Signs: Vital Signs Past 12 Hours Date Time Temp Pulse Resp B/P Pulse Ox O2 Delivery O2 Flow Rate FiO2 02/24/17 07:24 37.0 69 20 137/64 97 Room Air 02/24/17 05:58 37 69 2 137/64 97 Room Air Pre-Sedation Airway Assessment Oral Cavity: WNL Short Thick Neck: No Hx of Sleep Apnea: No Smoking Status: Former Smoker Mallampati Classification: Class I ASA Classification: Class II Notes The planned sedation has been discussed with the patient and consent obtained. I have identified the patient, determined the appropriateness of sedation and have assessed the patient immediately prior to the procedure. All medicine(s) and interventions are by my order.
[2017-02-24] MEDS ORDERED: FENTANYL CITRATE INJ 50 MCG/1 ML 2 ML VIAL IV ONE (08:31)
[2017-02-24] MEDS ORDERED: MIDAZOLAM HCL 1 MG/ML 2ML VIAL IV ONE (08:31)
[2017-02-24] MEDS ORDERED: LIDOCAINE HCL 1% 20 ML VIAL SQ ONE (09:31)
[2017-02-24] MEDS ORDERED: IODIXANOL (VISIPAQUE) 270 MG/ML 150ML FLUSH ONE (09:31)
--- NOTE | 2017-02-24 09:35 | Procedure Note ---
Post-Moderate Sedation Plan General Date of Moderate Sedation February 24, 2017. Vital Signs: Vital Signs Past 12 Hours Date Time Temp Pulse Resp B/P Pulse Ox O2 Delivery O2 Flow Rate FiO2 02/24/17 07:24 37.0 69 20 137/64 97 Room Air 02/24/17 05:58 37 69 2 137/64 97 Room Air Review - Discharge Plan Post Moderate Sedation Plan: On clinical assessment, the patient appears to have tolerated the conscious sedation without complications. Patient is recovering as anticipated. Patient will continue to be monitored by nursing and may be discharged when conscious sedation discharge criteria are met.
[2017-02-24] MEDS ORDERED: SODIUM CHLORIDE 0.9% 1000ML 1,000 ML IV SCH (09:39)
--- NOTE | 2017-02-24 09:39 | [facility] Post Operative Brief Note ---
Immediate Operative Summary Operative Date February 24, 2017. Pre-Operative Diagnosis Left Leg Claudication with toe ulcer Post-Operative Diagnosis Same Procedure(s) Performed Left Lower Extremity Angiogram, Percutaneous Transluminal Angioplasty and Stenting of Left Popliteal and Superficial Femoral Artery, Percutaneous Transluminal Angioplasty of Left Posterior Tibial Artery Mechanical Closure of Right Femoral Artery, Moderate Sedation([id number]) Surgeon Dr. Shah Disposal Plant Operator Surgeon(s) None Estimated Blood Loss 10 Findings good flow through AT Specimens None Anesthesia Local with conscious sedation Complication(s) None Disposition
[2017-02-24] MEDS ORDERED: CLOP1TAB5 PO (09:41)
[2017-02-24] MEDS ORDERED: CLOPIDOGREL BISULFATE 300 MG TAB PO STA (09:42)
--- NOTE | 2017-02-24 09:42 | Discharge Instructions ---
Discharge Instructions Date of Service February 24, 2017. Visit Reason for Visit: Left Lower Extremity Pad Discharge Discharge Diagnosis / Problem: Left leg arterial disease with claudication and toe ulcer Discharge Goals Goal(s): Therapeutic intervention Activity Recommendations Activity Limitations: per Instructions/Follow-up section Anesthesia . Post Anesthesia Instructions: If you have had General Anesthesia or IV Sedation: * Do not drive today. * Resume driving when surgeon permits. * Do not make important decisions or sign legal documents today. * Call surgeon for: 1. Temperature elevations greater than 101 degrees F. 2. Uncontrollable pain. 3. Excessive bleeding. 4. Persistent nausea and vomiting. 5. Medication intolerance (nausea, vomiting or rash). * For nausea and vomiting use only clear liquids such as: tea, soda, bouillon until nausea subsides, then gradually increase diet as tolerated. * If you have any concerns or questions, call your surgeon's office. If physician is unavailable and it is an emergency, call 911 or go to the nearest emergency room. . Instructions / Follow-Up Instructions / Follow-Up Call [phone] to schedule a follow up appointment if one not already scheduled. SPECIAL CARE INSTRUCTIONS: Medications: * Continue to take your medications as directed. If you have been given a prescription for Plavix, please fill it immediately and take as directed. Incision Care: * Your puncture site may have some bruising and minor swelling for about one week. * You will have a small dressing covering your puncture site. You may remove the dressing after 24 hours and shower. You may let the warm soapy water run over it, but be sure to dry the puncture site well and keep it dry. * DO NOT IMMERSE THE INCISION IN A TUB/POOL/etc. UNTIL HEALED. * Puncture sites should be kept covered with a band-aid until it begins to heal. Restrictions: * Depending on whether you leg or arm was punctured to access the arteries, you will be required to lay flat, hold your arm still, or both, for about 4 hours after the procedure to prevent bleeding. * Limit your activity for the first 48 hours. You may walk and go up and down steps. Avoid excessive bending or movement at the puncture site. Possible Complications: * Excessive Swelling - after blood flow is improved you may notice increased swelling in the lower legs. This is a normal response. This usually depends on the amount of blockages in the leg, how long they have been there prior to your procedure and how much blood flow was restored. Elevating your legs will help to improve this. Please notify our office ([phone] ) if the swelling does not go away after lying in bed overnight. * Infection/Drainage/Bleeding - Drainage or bleeding from the puncture site should be minimal. If you have excessive bleeding or drainage, call our office ([phone]) right away. * Pain - You may experience some mild pain or soreness at your puncture site. If your pain does not improve, please contact our office ([phone]). Call your doctor and seek emergent treatment if you develop: * Temperature above 101 degrees * Any fever or chills * Any redness or purulent drainage from the puncture site * Any new dusky/blue colored toes or feet with coolness or sharp or aching pain. SKIN IRRITATION: * You may experience some redness and/or swelling in the area where radiation was administered. If any skin irritation occurs, please contact your family physician. FOLLOW UP VISIT: Keep any scheduled doctor appointments. Diet Recommendations Recommended Home Diet: resume previous diet Procedures Procedures Performed: Left Lower Extremity Angiogram, Percutaneous Transluminal Angioplasty and Stenting of Left Popliteal and Superficial Femoral Artery, Percutaneous Transluminal Angioplasty of Left Posterior Tibial Artery Mechanical Closure of Right Femoral Artery, Moderate Sedation([id number]) Pending Studies Studies pending at discharge: no Medical Emergencies . Who to Call and When: Medical Emergencies: If at any time you feel your situation is an emergency, please call 911 immediately. . Non-Emergent Contact Non-Emergency issues call your: Surgeon . . "Provider Documentation" section prepared by Colby Shah. .
[2017-02-24] MEDS ORDERED: OXYCODONE/ACETAMINOPHEN 5-325 TAB PO PRN (09:45)
--- NOTE | 2017-02-24 10:21 | DIAGNOSTIC IMAGING REPORT ---
DATE OF PROCEDURE: 02/24/2017 PREOPERATIVE DIAGNOSIS: Left leg peripheral vascular occlusive disease with claudication and toe ulcer. POSTOPERATIVE DIAGNOSIS: Same. PROCEDURES: 1. Left lower extremity arteriography, balloon angioplasty and stenting of left superficial femoral and popliteal artery. 2. Balloon angioplasty of posterior tibial artery. 3. Mechanical closure of the right femoral artery. 4. Conscious sedation 62 minute. SURGEON: Dr. Shah. ANESTHETIC: Local with conscious sedation. PROCEDURE INDICATIONS: The patient is a 66-year-old gentleman who has had bilateral toe ulcers and bilateral claudication. We intervened on the right lower extremity which went well. He now returns for increased claudication left lower extremity and toe ulcer. Endovascular intervention was recommended. He understood the risks, options and benefits and agreed to have this procedure. The patient was taken to the angio suite and placed in supine position. After the groins were prepped and draped in a sterile manner, local anesthetic was administered. Percutaneous puncture was made of the right common femoral artery. An 0.035 wire and a Green[place]ic sheath was inserted. Using a rim catheter and 0.035 wire, the left side was cannulated from the right side. The rim cath was passed onto the external iliac. Arteriography was performed. This showed a short occlusion in the mid superficial femoral artery and then occlusion of the proximal popliteal at the adductor hiatus with reconstitution of the distal end of the tibioperoneal trunk. There was a good peroneal runoff seen to the foot as well as the anterior tibial. The posterior tibial was small, but appeared to be patent. At that point, a 0.035 stiffened wire was inserted. The rim catheter was removed. The sheath was exchanged for a 6-Greenlandic destination. Using a Quick-Cross and an 0.035 stiffened Glidewire, the lesions were traversed without too much difficulty. Once the Quick-Cross was passed down into the infrapopliteal vessels arteriography was performed which showed a posterior tibial which was patent but very small. Wire was left in this artery. We then used a 4 x 100 balloon and ballooned from the tibioperoneal trunk up to the adductor hiatus. We then decided that we should stent this due to recoil. We used a 5 x 100 followed by 5 x 80 followed by a 6 x 80 Tigris stent. These were ballooned with a 5 x 100 balloon. At that point, there was still an area of moderate stenosis and irregularity more proximal in the distal superficial femoral artery. We then overlapped a 6 x 100 Tigris stent over this area overlapping the old stents. Post-stenting angio after these were again ballooned by the 5 x 100 balloon post-angio showed the stents to be widely patent with good flow. We then put the Quick-Cross back into the posterior tibial artery, switched out the wire to command 0.014 and used a 3 x 200 balloon to balloon the posterior tibial artery. There was some flow seen in the posterior tibial artery; however appeared to be very small. Most of the flow was through the peroneal, anterior tibial artery. At that point we pulled the destination over to the right side. Angiogram done at that level showed the puncture to be in the common femoral artery. The puncture site was then closed using a Star closure device. Adequate hemostasis was then noted. Sterile dressings were applied to the wound. The patient had excellent dorsalis pedis pulse to Doppler at the end of the procedure, which was biphasic in nature. It was markedly improved from preop. The patient was then transported to the recovery area. This was done after sterile dressings were applied to the groin. The patient tolerated the procedure well.
== END 2017-02-24 12:50 | disposition home or self-care (01) ==
LOC: C.ACU 05:21
PROVIDERS: ATTEND Surgery Vascular Surgery
DX: I73.9 Peripheral vascular disease, unspecified (principal); L97.529 Non-pressure chronic ulcer of other part of left foot with unspecified severity; Z79.899 Other long term (current) drug therapy; I25.2 Old myocardial infarction; I25.10 Atherosclerotic heart disease of native coronary artery without angina pectoris; I10 Essential (primary) hypertension; Z90.89 Acquired absence of other organs; Z98.890 Other specified postprocedural states; F17.200 Nicotine dependence, unspecified, uncomplicated; Z79.82 Long term (current) use of aspirin; Z82.49 Family history of ischemic heart disease and other diseases of the circulatory system; Z83.3 Family history of diabetes mellitus; Z80.9 Family history of malignant neoplasm, unspecified; I70.212 Atherosclerosis of native arteries of extremities with intermittent claudication, left leg

== ENCOUNTER → 2017-06-27 | Outpatient (CLI) | payer OTHER, MEDICARE ==
[~2017-06-27] MED LIST changes: -BROM0.07 OPL; +CLOP1TAB5 PO; -OFLO0.3S OPL; -PRED1SUS3 OPL; +Symbicort Inhaler INH
[2017-06-27 13:46] LABS: ALT/SGPT 27 U/L (12-78); AST/SGOT 21 U/L (15-37); BLOOD UREA NITROGEN 9 mg/dl (7-18); CALCIUM 9.2 mg/dl (8.5-10.1); CARBON DIOXIDE 28 mmol/L (21-32); CHLORIDE 103 mmol/L (98-107); CREATININE 0.78 mg/dl (0.60-1.40); GLUCOSE 133 mg/dl (70-99); POTASSIUM 4.1 mmol/L (3.5-5.1); SODIUM 138 mmol/L (136-145)
[2017-06-27 14:04] LABS: HEMATOCRIT 42.7 % (42-52); MEAN CELL VOLUME 102.6 fL (80-100); MEAN CORPUSCULAR HEMOGLOBIN 34.9 pg (25-34); MEAN PLATELET VOLUME 9.8 fL (7.4-10.4); PLATELET COUNT 374 K/uL (130-400); RED BLOOD COUNT 4.16 M/uL (4.7-6.1); WHITE BLOOD COUNT 9.43 K/uL (4.8-10.8)
[2017-06-27 14:09] LABS: CHOLESTEROL/HDL RATIO 3.2
== END | disposition home or self-care (01) ==
LOC: C.LABMFLN 07:45
PROVIDERS: ATTEND Internal Medicine Cardiovascular Disease
DX: I25.10 Atherosclerotic heart disease of native coronary artery without angina pectoris (principal); E78.5 Hyperlipidemia, unspecified

== ENCOUNTER → 2017-12-13 | Outpatient (CLI) | payer OTHER, MEDICARE | END | disposition home or self-care (01) | LOC: C.LABMFLN 17:47 | PROVIDERS: ATTEND Family Medicine | DX: R35.0 Frequency of micturition (principal) ==

== ENCOUNTER → 2018-01-05 | Outpatient (CLI) | payer OTHER, MEDICARE ==
[2018-01-05 18:03] LABS: HEMATOCRIT 36.2 % (42-52); HEMOGLOBIN 12.1 g/dL (14.0-18.0); MEAN CELL VOLUME 99.5 fL (80-100); MEAN CORPUSCULAR HEMOGLOBIN 33.2 pg (25-34); MEAN CORPUSCULAR HGB CONC 33.4 g/dl (32-36); MEAN PLATELET VOLUME 9.2 fL (7.4-10.4); PLATELET COUNT 533 K/uL (130-400); WHITE BLOOD COUNT 12.26 K/uL (4.8-10.8)
[2018-01-05 18:40] LABS: BLOOD UREA NITROGEN 11 mg/dl (7-18); CALCIUM 9.1 mg/dl (8.5-10.1); CARBON DIOXIDE 28 mmol/L (21-32); CREATININE 0.93 mg/dl (0.60-1.40); GLUCOSE 108 mg/dl (70-99); POTASSIUM 4.1 mmol/L (3.5-5.1); SODIUM 131 mmol/L (136-145)
== END | disposition home or self-care (01) ==
LOC: C.LABMFLN 12:09
PROVIDERS: ATTEND Family Medicine
DX: D64.9 Anemia, unspecified (principal)

== ENCOUNTER 2018-01-25 09:14 | Observation (INO) | payer OTHER, MEDICARE ==
[2018-01-25] VITALS (7 sets, daily range): BP systolic 118–162; BP diastolic 77–96; PULSE 64–116; TEMP 36.3–37.1; O2SAT 94–96; Ht 180.3 cm; Wt 98.7 kg
[~2018-01-25] VITALS: Ht 180.3 cm; Wt 98.7 kg
[~2018-01-25 09:14] MED LIST changes: +CLINDAMYCIN 600 MG/54 ML D5W IV SCH; +LACTATED RINGER'S 1000ML IV SCH
[2018-01-25] MEDS ORDERED: BACITRACIN 50000 UNIT VIAL ONE (11:14)
[2018-01-25] MEDS ORDERED: BACITRACIN OINT 0.9 GM PKT ONE (11:14)
[2018-01-25] MEDS ORDERED: LIDOCAINE HCL 1% 20 ML VIAL ONE (11:14)
--- NOTE | 2018-01-25 11:36 | History & Physical Bridge Note ---
H&P Re-Evaluation Bridge Note: I have examined the patient, reviewed the History & Physical and in the interval since the performance of the History & Physical I have noted the following changes of clinical significance: No changes noted. I reviewed the indications, procedure, risks and alternatives of ICD implantation (single- chamber device) with him and his and they understand and he agrees to proceed. Consent obtained. I also reviewed the risks of conscious sedation with him and he understands and agrees to proceed. Consent obtained.
--- NOTE | 2018-01-25 11:37 | Pre Sedation Assessment ---
Pre Sedation Assessment General Date of Sedation: Jan 25, 2018. Vital Signs Past 12 Hours Date Time Temp Pulse Resp B/P (MAP) Pulse Ox O2 Delivery O2 Flow Rate FiO2 01/25/18 09:55 36.6 95 20 149/96 (113) 94 Room Air Review Cardiovascular: regular rate, rhythm Lungs: lungs clear Pre-Sedation Airway Assessment Smoking Status: Former Smoker Hx of Sleep Apnea: No Hx of difficult intubation: No Short Thick Neck: No Thyro-mental Distance: > 3 Finger Breadths Oral Cavity: WNL Mallampati Classification: Class II ASA Classification: Class III NPO Status Date of Last Intake of Fluids: Jan 24, 2018 Time of Last Intake of Fluids: 1899 Date of Last Intake of Solids: Jan 24, 2018 Time of Last Intake of Solids: 1899 Procedure Planning Contraindications for Sedation: None Current Medications Reviewed: Yes Notes The planned sedation has been discussed with the patient. Informed Consent was obtained. I have identified the patient, determined the appropriateness of sedation and have assessed the patient immediately prior to the procedure. All medicine(s) and interventions are by my order.
[2018-01-25] MEDS ORDERED: MIDAZOLAM HCL 5 MG/ML 1 ML VIAL ONE (11:50)
[2018-01-25] MEDS ORDERED: FENTANYL CITRATE INJ 50 MCG/1 ML 2 ML VIAL ONE ×2 (11:50→12:13)
[2018-01-25] MEDS ORDERED: MIDAZOLAM HCL 1 MG/ML 2ML VIAL ONE (12:13)
--- NOTE | 2018-01-25 12:59 | [facility] Operative Report ---
Operative Report Operative Date Jan 25, 2018. Pre-Operative Diagnosis Sustained ventricular tachycardia Post-Operative Diagnosis Same Procedure(s) Performed Single-chamber ICD implantation Surgeon Dr. Reyes Rail Car Operator Surgeon(s) None Estimated Blood Loss 20 cc Findings Good lead position, good measurements Specimens None Anesthesia Local with sedation Complication(s) None Disposition PCU Description of Procedure After obtaining informed consent for the procedure, the patient was brought to the laboratory and prepped and draped in the standard sterile manner. The right prepectoral region was anesthetized with 1% lidocaine local anesthetic and right axillary venipuncture was performed by percutaneous technique and a guidewire placed through the right subclavian vein into the superior vena cava. The area was further infiltrated with 1% lidocaine local anesthetic and a 7 cm incision was made parallel to the right clavicle and 2 cm below it and carried down to the anterior pectoralis fascia. An ICD pocket was formed by blunt dissection anterior to the pectoralis fascia and a bacitracin-soaked sponge (50, 000 units in 50 cc normal saline solution) was placed in the pocket. A 10.5 Sami Medtronic lead introducer was placed over the guidewire into the right subclavian vein, the dilator and guidewire were removed and a bipolar dual coil active fixation steroid tipped ventricular ICD lead was advanced through the introducer into the superior vena cava. A guidewire was placed through the introducer and the introducer was stripped from the lead and guidewire. Using a curved stylette the ventricular lead was advanced through the right ventricular outflow tract into the pulmonary artery and then using a straight stylette was positioned in the right ventricular apex. The screw was extended fixing the lead in position. Pacing and sensing thresholds were evaluated in bipolar configuration and are recorded on the implant data sheet. Once the lead was in position it was attached to the anterior pectoralis fascia using 2 sutures of 2-0 silk around the lead collar. The bacitracin-soaked sponge was removed from the pocket, hemostasis was obtained, the ICD was attached to the lead and placed in the pocket with the lead coiled beneath it. The incision was closed with a running double subcutaneous closure of 3-0 V- Lock absorbable suture, followed by running subcuticular skin closure of 4-0 V- Lock absorbable suture. Bacitracin ointment was placed on the incision and a pressure dressing applied. I attest to the content of the Intraoperative Record and any orders documented therein. Any exceptions are noted below.
[2018-01-25] MEDS ORDERED: ACETAMINOPHEN 325 MG TAB PO PRN (13:00)
--- NOTE | 2018-01-25 13:00 | Post Sedation Assessment ---
Post Sedation Assessment General Date of Sedation Jan 25, 2018. Vital Signs: Vital Signs Past 12 Hours Date Time Temp Pulse Resp B/P (MAP) Pulse Ox O2 Delivery O2 Flow Rate FiO2 01/25/18 12:40 89 16 120/79 (93) 96 Mask 4 01/25/18 09:55 36.6 95 20 149/96 (113) 94 Room Air Post Procedure Recovery Score Activity: (2) Moves 4 extremities * Respiration: (2) Deep breath/cough Circulation: (2) +/-20% PreAnes Value Consciousness: (1) Arouseable (by name) Oxygen Saturation: (1) O2 needed for >90% Post Anesthesia Score: 8 Discharge Sedation Level of Care: Fast Track Phase II Post Sedation Plan On clinical assessment, the patient appears to have tolerated the sedation without complications. Patient is recovering as anticipated. Patient will continue to be monitored by nursing and may be discharged when sedation discharge criteria are met per below protocol. Upon Completions of procedure and additional 15 minutes continue every 5 minute vital signs and the P.A.R. score; then discharge to a Phase I or Fast Track to Phase II per the following guidelines: * Discharge Patient to appropriate Phase II area if PAR is 8 or greater or return to pre- procedure baseline. The post - procedure orders will be as directed. * If PAR score is less than 8 or not return to pre-procedure baseline then patient will follow Phase I monitoring till PAR is reached for Phase II. The Phase I may be done in procedure room or may call to secure a Phase I area. * If naloxone or flumazenil are used for reversal, hold in Phase I for an additional 60 -120 minutes before discharge to Phase II. Please call the Sedation Physician to re-evaluate and complete post-note for discharge to Phase II area. Do NOT discharge from procedure sedation or Phase 1 until post- sedation evaluation note is complete by procedure /sedation MD Sedation Discharge Instructions to be given to the patient at discharge to home.
[2018-01-25] MEDS ORDERED: IV FLUIDS COMPLETED PRN ×2 (14:45→15:00)
[2018-01-25] MEDS: KETOROLAC TROMETHAMINE 10 MG TAB PO PRN (15:28)
[2018-01-25] MEDS: METOPROLOL TARTRATE 100 MG TAB PO SCH (19:58)
[2018-01-25] MEDS ORDERED: ATORVASTATIN 20 MG TAB PO SCH (21:00)
[2018-01-26 03:43] VITALS: BP 153/80; PULSE 67; TEMP 36.4; O2SAT 94
[2018-01-26] MEDS: KETOROLAC TROMETHAMINE 10 MG TAB PO PRN (04:10)
--- NOTE | 2018-01-26 06:57 | DIAGNOSTIC IMAGING REPORT ---
CHEST 2 VIEWS ROUTINE CLINICAL HISTORY: Chest x-ray status post pacemaker placement COMPARISON STUDY: No previous studies for comparison. FINDINGS: There are postsurgical changes of a midline sternotomy. There is a right subclavian pacer/defibrillator. No pneumothorax is visualized. There is pulmonary emphysema. There is a 32 mm left apical opacity. In the absence of prior radiographs, CT scanning is recommended in follow-up. There is blunting of both lateral costophrenic angles.[ IMPRESSION: 1. No evidence of pneumothorax status post pacemaker placement 2. Indeterminate 32 mm left apical opacity. In the absence of prior radiographs, CT scanning is recommended in follow-up. Electronically signed by: Nicola Celeste M.D. 01/26/2018 6:55 AM Dictated Date/Time: 01/26/2018 6:53 AM
[2018-01-26 07:38] VITALS: BP 137/85; PULSE 72; TEMP 36.6; O2SAT 93
[2018-01-26] MEDS ORDERED: CLOPIDOGREL BISULFATE 75 MG TAB PO SCH (09:00)
[2018-01-26] MEDS ORDERED: ASPIRIN 81 MG ECTAB PO SCH (09:00)
[2018-01-26] MEDS ORDERED: FENTANYL CITRATE INJ 50 MCG/1 ML 2 ML VIAL ONE (09:07)
[2018-01-26] MEDS ORDERED: MIDAZOLAM HCL 1 MG/ML 2ML VIAL ONE ×2 (09:07→09:17)
--- NOTE | 2018-01-26 09:09 | Pre Sedation Assessment ---
Pre Sedation Assessment General Date of Sedation: Jan 26, 2018. Vital Signs Past 12 Hours Date Time Temp Pulse Resp B/P (MAP) Pulse Ox O2 Delivery O2 Flow Rate FiO2 01/26/18 07:38 36.6 72 20 137/85 (102) 93 Room Air 01/26/18 04:00 Room Air 01/26/18 03:43 36.4 67 20 153/80 (104) 94 Room Air 01/25/18 23:59 Room Air 01/25/18 23:24 36.3 64 18 127/83 (98) 94 Room Air Review Cardiovascular: regular rate, rhythm Lungs: lungs clear Pre-Sedation Airway Assessment Smoking Status: Former Smoker Hx of Sleep Apnea: No Hx of difficult intubation: No Short Thick Neck: No Thyro-mental Distance: > 3 Finger Breadths Oral Cavity: WNL Mallampati Classification: Class II ASA Classification: Class III NPO Status Date of Last Intake of Fluids: Jan 25, 2018 Time of Last Intake of Fluids: 2099 Date of Last Intake of Solids: Jan 25, 2018 Time of Last Intake of Solids: 2099 Procedure Planning Contraindications for Sedation: None Current Medications Reviewed: Yes Notes The planned sedation has been discussed with the patient. Informed Consent was obtained. I have identified the patient, determined the appropriateness of sedation and have assessed the patient immediately prior to the procedure. All medicine(s) and interventions are by my order.
--- NOTE | 2018-01-26 09:10 | History & Physical Bridge Note ---
H&P Re-Evaluation Bridge Note: I have examined the patient, reviewed the History & Physical and in the interval since the performance of the History & Physical I have noted the following changes of clinical significance: No changes note. I reviewed the indications, procedure, risks and alternatives of noninvasive program stimulation with him, including the risks of sedation. He understands and agrees to proceed. Consent had been obtained yesterday.
[2018-01-26] MEDS ORDERED: METO50TA8 PO (09:27)
--- NOTE | 2018-01-26 09:30 | Discharge Instructions ---
Discharge Instructions Date of Service Jan 26, 2018. Admission Ventricular Tachycardia Discharge Discharge Diagnosis / Problem: Status post single-chamber ICD implantation Discharge Goals Goal(s): Improve disease control Activity Recommendations Activity Limitations: as noted below . Instructions / Follow-Up Instructions / Follow-Up ACTIVITY RECOMMENDATIONS: * Do not raise affected arm over head for 2 weeks. SPECIAL CARE INSTRUCTIONS: * If bleeding occurs, apply direct pressure to area for 5 minutes. * Call your doctor if you have severe pain, fever, drainage or bleeding at site. * Keep dressing on and dry for 48 hours then remove. * Keep any scheduled doctor's appointment. * Implant Card - hand held device with website information given. SKIN IRRITATION: * You may experience some redness and/or swelling in the area where radiation was administered. If any skin irritation occurs, please contact your family physician. FOLLOW UP VISIT: 01/30/18 @ 9:30 am for incision check 02/23/18 @ 11:00 am for device check Current Hospital Diet Patient's current hospital diet: AHA Diet (Heart Healthy) Discharge Diet Recommended Diet: AHA Diet (Heart Healthy) Pending Studies Studies pending at discharge: no Medical Emergencies . Who to Call and When: Medical Emergencies: If at any time you feel your situation is an emergency, please call 911 immediately. . Non-Emergent Contact Non-Emergency issues call your: [employer] Worker . . "Provider Documentation" section prepared by Eva Finnegan. .
--- NOTE | 2018-01-26 09:39 | Cardiology Procedure Brief Nt ---
Preliminary Cardiology Note Procedure Date Jan 26, 2018. Pre-Procedure Diagnosis Sustained VT Post-Procedure Diagnosis Same Procedure(s) Performed Noninvasive program stimulation ICD reprogramming Fur Stylist Dr. Reyes Beehive Kiln Charcoal Burner(s) None Estimated Blood Loss None Preliminary Findings Easily inducible sustained monomorphic ventricular tachycardia, the heart rate was somewhat variable but was right around 200 bpm, it was induced a total of 8 times and terminated on all occasions with antitachycardia pacing. 7 episodes were terminated with a single burst, one episode required 2. Recommendations Discharge with current settings and medical therapy Specimens None Anesthesia No anesthesia, conscious sedation administered Complication(s) None Disposition PCU
--- NOTE | 2018-01-26 09:56 | Cardiology Follow-Up ---
Subjective Date of Service: Jan 26, 2018. Pt evaluation today including: conversation w/ patient, physical exam, lab review, review of studies, review of inpatient medication list History of Present Illness Post right sided ICD implantation yesterday, no discomfort at the site, no complaints. Noninvasive program stimulation performed today. Social History Smoking Status: Former Smoker History of Alcohol Use: Yes (wine with supper) Review of Systems Respiratory: No shortness of breath Cardiac: No chest pain Objective Vital Signs Past 12 Hours Date Time Temp Pulse Resp B/P (MAP) Pulse Ox O2 Delivery O2 Flow Rate FiO2 01/26/18 09:35 63 16 116/57 (76) 98 Room Air 01/26/18 08:00 Room Air 01/26/18 07:38 36.6 72 20 137/85 (102) 93 Room Air 01/26/18 04:00 Room Air 01/26/18 03:43 36.4 67 20 153/80 (104) 94 Room Air 01/25/18 23:59 Room Air 01/25/18 23:24 36.3 64 18 127/83 (98) 94 Room Air Last Recorded Weight-Kilograms: 98.700 Physical Exam Constitutional: Level of Distress: NAD Lungs: Auscultation: breath sounds normal Cardiovascular: Heart Auscultation: RRR, no rubs Extremities: no edema The incision is clean and dry, no ecchymosis or hematoma. Dressing change. Data Imaging: Chest x-ray shows good lead position, no pneumothorax. Left apical cancer evident. EKG: Sinus rhythm, no pacing (appropriate) Telemetry reviewed: sinus rhythm with appropriate ICD inhibition ICD evaluation: Excellent pacing and sensing characteristics Assessment and Plan Postop day #1: He is doing well, his incision looks good and he has no significant discomfort. Leads are in good position and the device is functioning very well. Ventricular tachycardia: He has easily inducible sustained monomorphic ventricular tachycardia which appear similar to his clinical presentation. We were able to induce this a total of 8 times, antitachycardia pacing was very successful in terminating at (burst pacing 1 on 7 occasions and 2 on the last) . He is very likely to have recurrent tachycardia, we will need to titrate his beta blockers as an outpatient but I would still plan to discontinue the amiodarone as scheduled. We will see him in follow-up. He is scheduled for the office next week. stable for discharge
[2018-01-26] MEDS: METOPROLOL TARTRATE 100 MG TAB PO SCH (10:05)
--- NOTE | 2018-01-26 10:42 | Discharge Summary ---
Discharge Summary Admission Date: Jan 25, 2018 at 13:03 Discharge Date: Jan 26, 2018 Discharge Disposition: Home Primary Diagnosis: Ventricular tachycardia Procedures: Single-chamber ICD implantation Discharge Instructions Last Recorded Wt (Kilograms): 98.700 Activity Recommendations: limitations as noted below Allergies: Coded Allergies: Cephalexin (Verified Allergy, Unknown, FLUSHED LIGHT HEADED, 01/04/17) Niacin (Verified Allergy, Unknown, ENTIRE BODY ON FIRE, 01/04/17) Additional Instructions: ACTIVITY RECOMMENDATIONS: * Do not raise affected arm over head for 2 weeks. SPECIAL CARE INSTRUCTIONS: * If bleeding occurs, apply direct pressure to area for 5 minutes. * Call your doctor if you have severe pain, fever, drainage or bleeding at site. * Keep dressing on and dry for 48 hours then remove. * Keep any scheduled doctor's appointment. * Implant Card - hand held device with website information given. SKIN IRRITATION: * You may experience some redness and/or swelling in the area where radiation was administered. If any skin irritation occurs, please contact your family physician. FOLLOW UP VISIT: Keep any scheduled doctor appointments. Special Care: Call your doctor if: * Temperature above 101 degrees * Pain not relieved by pain medicine ordered * There is increased drainage or redness from any incision * You have any unanswered questions or concerns. Avoid all tobacco products. If you need help to stop smoking, call [place]'s FREE QUITLINE at . This is a free call. Admission HPI This is a very pleasant 67-year-old gentleman who has a history of coronary artery disease including myocardial infarction 1999 where he had stent placement , he also had catheterization on June 26, 2007 at which time he was evaluated for bypass surgery but was felt to be best treated medically. Echocardiography in April 2014 showed normal left ventricular size and function. He also has peripheral vascular disease and has had stent placement. He then presented with an acute myocardial infarction and ventricular tachycardia on December 14, 2017. I do not have the tracings from that visit, however he apparently was in a sustained ventricular arrhythmia, which he tolerates surprisingly well, and went to [facility] from where he was airlifted to [facility]. It sounds as though he was in ventricular tachycardia for some length of time and received amiodarone in route with resolution of his ventricular tachycardia. He had catheterization performed where triple-vessel coronary disease was identified with ejection fraction of 50 %. He therefore had bypass surgery performed on December 20, 2017, this was a bypass 6 with a DAVIS to the inferior diagonal vessel, mid LAD, and distal LAD. He had saphenous vein grafts to an obtuse marginal, posterolateral coronary artery and PDA. He recovered quite well evidently from that procedure and was discharged. He then presented with a rapid heart rate on January 11, 2018 and was found to be in sustained ventricular tachycardia. I have seen a rhythm strip of that and it does appear to be a monomorphic ventricular rhythm at just under 200 bpm. He was electively cardioverted from that arrhythmia and went on to have a catheterization which showed adequate revascularization, his left ventricular ejection fraction had not changed significantly. He therefore had a LifeVest placed which he has been wearing and he has had no shocks using it and no sensation of his ventricular arrhythmia. He has no exertional symptoms to suggest angina and does not have severe heart failure symptoms although he does have NYHA class II heart failure symptoms Admission Physical Exam Additional Comments: Constitutional: Alert, cooperative and in no distress. HEENT: Unremarkable Neck: No jugular venous distention, carotid pulses are normal and equal bilaterally without bruits. Pulmonary: Clear to auscultation bilaterally. Cardiac: Regular rhythm with no murmur, gallop or rub. Abdomen: Soft, nontender with normal bowel sounds. Extremities: No edema. Distal pulses intact. Neurologic: No focal findings. Gait is steady. Skin: No rash, ecchymoses or petechiae. Hospital Course Patient is a 67-year-old male with a history of acute OK in December 2017 with subsequent CAGB x6 and history of sustained ventricular tachycardia who underwent implantation if single-chamber ICD on 01/25/[address] Reyes. He tolerated the procedure well. Device check the day after implantation showed excellent sensing and pacing characteristics. CXR showed good lead placement and no evidence of pneumothorax. He was deemed stable for discharge on 01/26/18. His Toprol XL was increased to 50 mg daily prior to discharge. He will have follow-up in 4 days for incision check and in 1 month for device check. Total time spent on discharge = This includes examination of the patient, discharge planning, medication reconciliation, and communication with other providers.
[2018-01-26 11:06] VITALS: BP 116/57; PULSE 63; TEMP 36.6; O2SAT 98
== END 2018-01-26 11:24 | disposition home or self-care (01) ==
LOC: C.ACU 09:14 → C.2T 13:03 → ENRESERV 13:41
PROVIDERS: ADMIT Internal Medicine Cardiovascular Disease; ATTEND Internal Medicine Cardiovascular Disease
DX: I47.2 Ventricular tachycardia (principal); I25.10 Atherosclerotic heart disease of native coronary artery without angina pectoris; I25.2 Old myocardial infarction; Z95.1 Presence of aortocoronary bypass graft; Z88.1 Allergy status to other antibiotic agents